=== PATIENT | female | born 1960 | race Caucasian/White ===

== ENCOUNTER → 2020-07-11 | Outpatient (CLI) | payer OTHER ==
[~2020-07-11] MED LIST: FENTANYL PF 100 MCG/2ML ONE; FLUMAZENIL 0.1 MG/1 ML, 5ML ONE; MIDAZOLAM 1 MG/ML, 5ML ONE; NALOXONE 1 MG/ML, 2ML ONE
== END | disposition home or self-care (01) ==
LOC: RAD 13:45
PROVIDERS: ATTEND Nurse Practitioner
DX: S22.078A Other fracture of T9-T10 vertebra, initial encounter for closed fracture (principal); M51.36 Other intervertebral disc degeneration, lumbar region; M43.16 Spondylolisthesis, lumbar region; I10 Essential (primary) hypertension; E11.9 Type 2 diabetes mellitus without complications; Z79.82 Long term (current) use of aspirin; Z79.4 Long term (current) use of insulin; Z79.899 Other long term (current) drug therapy; Z88.1 Allergy status to other antibiotic agents; Z88.5 Allergy status to narcotic agent; Z88.8 Allergy status to other drugs, medicaments and biological substances; Z89.511 Acquired absence of right leg below knee; Z89.422 Acquired absence of other left toe(s); Z82.49 Family history of ischemic heart disease and other diseases of the circulatory system; W01.0XXA Fall on same level from slipping, tripping and stumbling without subsequent striking against object, initial encounter; Y93.89 Activity, other specified; Y92.89 Other specified places as the place of occurrence of the external cause; Y99.8 Other external cause status
CPT/HCPCS: 72146; 72148; 99156; 99157; J2250; J3010; J2310

== ENCOUNTER 2021-04-09 16:05 | Inpatient (IN) | payer OTHER ==
[~2021-04-09] VITALS: Ht 175.3 cm; Wt 138.0 kg
[2021-04-09] MEDS ORDERED: SUCCINYLCHOLINE 20 MG/ML, 10ML ONE (16:07)
[2021-04-09] MEDS ORDERED: ETOMIDATE 20 MG/10 ML ONE (16:07)
--- NOTE | 2021-04-09 16:19 | NUR ---
pt BIB ambulance after a witnessd cardiac arrest per report, pt went to her doctor today for "a neuro issue" and after she got home, she collapsed on her proch. pt had CPR initiated by family on scene. when EMS arrived, pt was found to be in PEA. epi was given x2 and then pulses returned pt was hypotensive on scene at 86/60 and was given about 70cc of NS through IO access upon admit, pt currently has an LMA n place and BVM in progress [facility]BS INTERVENTIONAL RADIOLOGY TECH 102 RT present, pharmacy present 1608: NS 1L infusion initiated pe Dr. Solis at bedside 1610: 20mg etomidate administered IVP 1613: 200mg succinylcholine administered IVP 1615: LMA removed and 8.0 ET tube placed, 22cm @ lip. placement verified by MD at bedside and EtCO2
--- NOTE | 2021-04-09 16:27 | NUR ---
ventilator settings: A/C: 20 tidal volume: 450 O2: 100% PEEP: 8
[2021-04-09] MEDS ORDERED: LABETALOL 5MG/ML, 20ML IVPush PRN (16:30)
[2021-04-09] MEDS ORDERED: POLYETHYLENE GLYCOL 17 GM PACKET PO PRN (16:30)
[2021-04-09] MEDS ORDERED: MIDAZOLAM HCL 50 MG in SODIUM CHLORIDE 0.9% 40 ML IV PRN (16:30)
[2021-04-09] MEDS ORDERED: morphine SULFATE 10 MG/ML, 1ML IVPush PRN (16:30)
[2021-04-09] MEDS ORDERED: BISACODYL 10 MG SUPP PR PRN (16:30)
[2021-04-09] MEDS ORDERED: SUCCINYLCHOLINE 20 MG/ML, 10ML IVPush ONE (16:30)
[2021-04-09] MEDS ORDERED: NOREPINEPHRINE 8 MG in SODIUM CHLORIDE 0.9% 242 ML IV PRN (16:30)
[2021-04-09] MEDS ORDERED: ETOMIDATE 20 MG/10 ML IVPush ONE (16:30)
[2021-04-09] MEDS ORDERED: ONDANSETRON 2MG/ML, 2ML IVPush PRN (16:30)
[2021-04-09] MEDS ORDERED: LORazepam 2 MG/ML, 1ML IVPush PRN (16:30)
[2021-04-09] MEDS ORDERED: VASOPRESSIN 20 UNIT in SODIUM CHLORIDE 0.9% 99 ML IV PRN (16:30)
--- NOTE | 2021-04-09 16:30 | NUR ---
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 prosthetic has been removed by Dr. Solis, +redness to stump and redness to inner knee. pt also missing 1st to 3rd toes on L foot and has feces on the bottom of hre foot inside her shoe
--- NOTE | 2021-04-09 16:37 | NUR ---
CXR has been to bedside Dr. Solis currently having discussion with family members per Dr. Solis, pt to have hypothermic protocol after head CT
[2021-04-09 16:40] LABS: BASOPHILS % (AUTO) 1 % (0-1); EOSINOPHILS % (AUTO) 1 % (1-7); LYMPHOCYTES % (AUTO) 19 % (22-44); MEAN CORPUSCULAR HEMOGLOBIN 26.5 pg (27.0-34.8); MEAN CORPUSCULAR HGB CONC 30.2 g/dL (32.4-35.8); MEAN PLATELET VOLUME 9.4 fL (7.4-10.4); MONOCYTES % (AUTO) 6 % (2-9); NEUTROPHILS % (AUTO) 74 % (42-75); PLATELET COUNT 235 x10^3/uL (130-400); RED BLOOD COUNT 5.76 x10^6/uL (3.82-5.3); RED CELL DISTRIBUTION WIDTH 18.6 % (9.6-15.2)
--- NOTE | 2021-04-09 16:43 | NUR ---
Dr Solis at bedside administering 20mcg epi IVP
--- NOTE | 2021-04-09 16:47 | NUR ---
Dr Solis at bedside for central line placement pt B/P continues to decline. pharmacy has been contacted for levophed. awaiting delivery
--- NOTE | 2021-04-09 16:53 | NUR ---
pt has had another 50mcg of epi IVO from Dr. Solis at [facility]. pt B/P improved
[2021-04-09 16:55] LABS: INTERNATIONAL NORMALIZED RATIO 1.18 (0.93-1.1); PROTHROMBIN TIME 12.5 Seconds (9.6-11.5)
[2021-04-09 16:56] LABS: SALICYLATE LEVEL < 1.7 mg/dL (2.8-20.0)
[2021-04-09] MEDS ORDERED: FENTANYL PF 100 MCG/2ML ONE (16:58)
[2021-04-09] MEDS ORDERED: FENTANYL PF 1,000 MCG in SODIUM CHLORIDE 0.9% 80 ML IV PRN ×2 (17:00→19:30)
[2021-04-09] MEDS ORDERED: FENTANYL PF 100 MCG/2ML IV ONE (17:00)
--- NOTE | 2021-04-09 17:00 | NUR ---
2nd Liter NS started per VO from Dr. Solis at bedside 100mcg IVP given per VO from Dr. Solis at bedside
--- NOTE | 2021-04-09 17:00 | NUR ---
Dr Solis at bedside for central line placement
--- NOTE | 2021-04-09 17:03 | NUR ---
1st liter NS infusion completed 30mcg epinephrine IVP per VO from Dr. Solis at bedside
[2021-04-09 17:08] LABS: ALANINE AMINOTRANSFERASE 41 U/L (12-78); ALBUMIN 2.9 g/dL (3.4-5.0); ANION GAP 13 mmol/L (5-15); CALCIUM 8.2 mg/dL (8.5-10.1); CHLORIDE 107 mmol/L (98-107); CREATININE 2.06 mg/dL (0.55-1.02)
[2021-04-09] MEDS ORDERED: EPINEPHRINE SYRINGE 0.1 MG/ML, 10ML ONE (17:08)
--- NOTE | 2021-04-09 17:10 | NUR ---
Central line placement complete. per Dr. Solis at bedside, OK to begin levophed infusion in central line prior to line verification by imaging
[2021-04-09 17:13] LABS: ALKALINE PHOSPHATASE 93 U/L (45-117); BILIRUBIN,TOTAL 0.7 mg/dL (0.2-1.0); TOTAL PROTEIN 6.6 g/dL (6.4-8.2); TROPONIN I < 0.015 ng/mL (0.000-0.045)
--- NOTE | 2021-04-09 17:15 | NUR ---
CXR has been to bedside
[2021-04-09 17:22] LABS: ANISOCYTOSIS 1+
[2021-04-09 17:23] LABS: <PLATELET ESTIMATE> ADEQUATE; <PLT MORPHOLOGY> NORMAL PLT MORPH; POLYCHROMASIA 1+
[2021-04-09] MEDS ORDERED: EPINEPHRINE 1 MG/ML, 1ML SQ ONE (17:30)
[2021-04-09] MEDS ORDERED: DOXYCYCLINE 100 MG in DEXTROSE 5% 250 ML IV ONE (17:30)
[2021-04-09] MEDS ORDERED: CEFTRIAXONE 2 GM in DEXTROSE 5% 50 ML IVPB ONE (17:30)
--- NOTE | 2021-04-09 17:30 | NUR ---
RT at bedside. pt on transporrt vent pt to CT scan via [facility]
--- NOTE | 2021-04-09 17:50 | NUR ---
pt returned from CT scan
[2021-04-09] MEDS: MIDAZOLAM HCL 50 MG in SODIUM CHLORIDE 0.9% 40 ML IV PRN (18:01)
--- NOTE | 2021-04-09 18:30 | NUR ---
Dr Solis at bedside to attempt art line insertion
--- NOTE | 2021-04-09 18:40 | NUR ---
2nd art. line attempt
--- NOTE | 2021-04-09 18:59 | NUR ---
art line in place. report to Farnaz MARRERO
--- NOTE | 2021-04-09 19:03 | NUR ---
report from kathleen assumed care of pt at this time
[2021-04-09] MEDS ORDERED: PROPOFOL 100 ML IV ONE (19:08)
[2021-04-09] MEDS: CEFTRIAXONE 2 GM in DEXTROSE 5% 50 ML IVPB SCH (19:25)
[2021-04-09 19:27] VITALS: BP 138/74
--- NOTE | 2021-04-09 19:27 | NUR ---
diprivan and rocephin started at this time
[2021-04-09] MEDS ORDERED: CALCIUM CHLORIDE 13.6 MEQ in SODIUM CHLORIDE 0.9% 100 ML IVPB PRN (19:30)
[2021-04-09] MEDS: ARTIFICIAL TEARS OINT 3.5 GM EACHEYE SCH (19:30)
[2021-04-09] MEDS ORDERED: MAGNESIUM SULFATE 1 GM in DEXTROSE 5% 100 ML IVPB PRN (19:30)
[2021-04-09] MEDS ORDERED: SODIUM PHOSPHATE 20 MMOL in SODIUM CHLORIDE 0.9% 250 ML IVPB PRN (19:30)
--- NOTE | 2021-04-09 19:31 | NUR ---
report called to Emmy MARRERO
--- NOTE | 2021-04-09 19:57 | NUR ---
PT TRANSPORTED TO CCU WITH THIS RN AND RT AND 2 TECHS
[2021-04-09 20:20] LABS: TROPONIN I 0.048 ng/mL (0.000-0.045)
[2021-04-09] MEDS: KSCALE TO 4.0 IV SCH (20:30)
[2021-04-09 21:20] LABS: MICROSCOPIC INDICATED
[2021-04-09 21:30] LABS: ANION GAP 6 mmol/L (5-15); CHLORIDE 109 mmol/L (98-107)
[2021-04-09 21:31] LABS: CREATININE 1.73 mg/dL (0.55-1.02); TRIGLYCERIDES 108 mg/dL (50-200)
[2021-04-09 21:31] LABS: AMPHETAMINE SCREEN, URINE Negative (Negative); BARBITURATE SCREEN, URINE Negative (Negative); BENZODIAZEPINE SCREEN, URINE Positive (Negative); CANNABINOID SCREEN, URINE Negative (Negative); COCAINE SCREEN, URINE Negative (Negative); METHADONE SCREEN, URINE Negative (Negative); OPIATE SCREEN, URINE Negative (Negative)
[2021-04-09] MEDS: LACTATED RINGERS 1,000 ML IV SCH (22:11)
[2021-04-09] MEDS ORDERED: REGULAR INSULIN 100 UNITS in SODIUM CHLORIDE 0.9% 99 ML IV PRN (22:30)
[2021-04-09] MEDS ORDERED: INSULIN INFUSION FOR ICU PROTOCOL XX PRN (22:30)
[2021-04-09] MEDS: DOXYCYCLINE 100 MG in DEXTROSE 5% 250 ML IV SCH (22:31)
[2021-04-09] MEDS: FAMOTIDINE 20 MG/2 ML IVPush SCH (22:31)
[2021-04-09] MEDS: PROPOFOL 100 ML IV PRN (22:41)
[2021-04-09] MEDS: REGULAR INSULIN 100 UNITS in SODIUM CHLORIDE 0.9% 99 ML IV PRN (22:48)
[2021-04-09] MEDS ORDERED: DEXTROSE 50%, 50ML SYRINGE IV PRN (23:00)
[2021-04-09] MEDS ORDERED: INSULIN REGULAR 100 UNITS/ML, 3ML VIAL IV ONE (23:00)
[2021-04-10] MEDS ORDERED: LACTATED RINGERS 500 ML IVBOLUS ONE (00:30)
[2021-04-10] MEDS ORDERED: VECURONIUM 10 MG IVPush ONE (00:30)
[2021-04-10] MEDS: KSCALE TO 4.0 IV SCH ×6 (00:30→20:30)
[2021-04-10] MEDS: MIDAZOLAM HCL 50 MG in SODIUM CHLORIDE 0.9% 40 ML IV PRN ×3 (00:31→15:05)
[2021-04-10] MEDS: PROPOFOL 100 ML IV PRN ×7 (00:40→21:42)
[2021-04-10 00:50] LABS: ANION GAP 7 mmol/L (5-15); CALCIUM 7.8 mg/dL (8.5-10.1); CHLORIDE 110 mmol/L (98-107); CREATININE 1.67 mg/dL (0.55-1.02)
[2021-04-10] MEDS: DOPAMINE/D5W PMX 250 ML IV PRN ×4 (01:59→21:42)
[2021-04-10] MEDS: ARTIFICIAL TEARS OINT 3.5 GM EACHEYE SCH ×3 (02:33→19:40)
[2021-04-10] MEDS: FENTANYL PF 2,500 MCG in SODIUM CHLORIDE 0.9% 200 ML IV PRN ×2 (02:33→15:57)
[2021-04-10] MEDS: LACTATED RINGERS 1,000 ML IV SCH ×3 (03:03→22:30)
[2021-04-10] MEDS ORDERED: BENA40TA55 PO (04:14)
[2021-04-10] MEDS ORDERED: ZOLP10TA PO (04:14)
[2021-04-10] MEDS ORDERED: CLOP75TA52 PO (04:14)
[2021-04-10] MEDS ORDERED: ATOR40TA78 PO (04:14)
[2021-04-10] MEDS ORDERED: AMLO5TAB4 PO (04:14)
[2021-04-10] MEDS ORDERED: EMPA1TAB15 PO-COUM (04:14)
[2021-04-10] MEDS ORDERED: METO25TA91 PO (04:14)
[2021-04-10] MEDS ORDERED: ESCI20TA10 PO (04:14)
[2021-04-10] MEDS ORDERED: PIOG30TA23 PO (04:14)
[2021-04-10] MEDS ORDERED: INSU100V35 SQ (04:14)
[2021-04-10] MEDS ORDERED: GABA300C PO (04:14)
[2021-04-10] MEDS ORDERED: ALPR0.5T7 PO (04:14)
[2021-04-10] MEDS ORDERED: ICOS1CAP PO (04:14)
[2021-04-10 04:40] LABS: BASOPHILS % (AUTO) 0 % (0-1); EOSINOPHILS % (AUTO) 0 % (1-7); LYMPHOCYTES % (AUTO) 6 % (22-44); MEAN CORPUSCULAR HEMOGLOBIN 26.6 pg (27.0-34.8); MEAN CORPUSCULAR HGB CONC 31.6 g/dL (32.4-35.8); MEAN PLATELET VOLUME 8.6 fL (7.4-10.4); MONOCYTES % (AUTO) 5 % (2-9); NEUTROPHILS % (AUTO) 89 % (42-75); PLATELET COUNT 204 x10^3/uL (130-400); RED BLOOD COUNT 5.86 x10^6/uL (3.82-5.3); RED CELL DISTRIBUTION WIDTH 17.3 % (9.6-15.2)
[2021-04-10] MEDS ORDERED: POTASSIUM CHLORIDE PMX 100 ML IV ONE (05:30)
[2021-04-10 05:31] LABS: ALANINE AMINOTRANSFERASE 38 U/L (12-78); ANION GAP 10 mmol/L (5-15); CALCIUM 8.4 mg/dL (8.5-10.1); CHLORIDE 108 mmol/L (98-107)
[2021-04-10 05:33] LABS: ALKALINE PHOSPHATASE 83 U/L (45-117); BILIRUBIN,TOTAL 0.9 mg/dL (0.2-1.0); CREATININE 1.57 mg/dL (0.55-1.02); TOTAL PROTEIN 6.6 g/dL (6.4-8.2)
[2021-04-10] MEDS ORDERED: SODIUM PHOSPHATE 20 MMOL in SODIUM CHLORIDE 0.9% 250 ML IV ONE (09:00)
[2021-04-10] MEDS: SENNA/DOCUSATE TABLET PO SCH (09:00)
[2021-04-10] MEDS ORDERED: POTASSIUM CHLORIDE PMX 100 ML IVPB ONE (10:00)
[2021-04-10] MEDS: DOXYCYCLINE 100 MG in DEXTROSE 5% 250 ML IV SCH ×2 (10:47→22:40)
[2021-04-10] MEDS ORDERED: POTASSIUM CHLORIDE 40 MEQ in SODIUM CHLORIDE 0.9% 100 ML IV ONE (13:30)
[2021-04-10] MEDS: CEFTRIAXONE 2 GM in DEXTROSE 5% 50 ML IVPB SCH (17:52)
[2021-04-10] MEDS: FAMOTIDINE 20 MG/2 ML IVPush SCH (21:32)
[2021-04-11] MEDS: KSCALE TO 4.0 IV SCH ×6 (00:30→20:30)
[2021-04-11] MEDS: ARTIFICIAL TEARS OINT 3.5 GM EACHEYE SCH ×3 (02:23→21:19)
[2021-04-11] MEDS: MIDAZOLAM HCL 50 MG in SODIUM CHLORIDE 0.9% 40 ML IV PRN ×3 (02:23→17:33)
[2021-04-11] MEDS: PROPOFOL 100 ML IV PRN ×6 (02:24→16:57)
[2021-04-11] MEDS: DOPAMINE/D5W PMX 250 ML IV PRN ×3 (02:57→12:26)
[2021-04-11 05:09] LABS: BASOPHILS % (AUTO) 1 % (0-1); EOSINOPHILS % (AUTO) 4 % (1-7); LYMPHOCYTES % (AUTO) 11 % (22-44); MEAN CORPUSCULAR HEMOGLOBIN 26.7 pg (27.0-34.8); MEAN CORPUSCULAR HGB CONC 31.4 g/dL (32.4-35.8); MEAN PLATELET VOLUME 9.4 fL (7.4-10.4); MONOCYTES % (AUTO) 6 % (2-9); NEUTROPHILS % (AUTO) 79 % (42-75); PLATELET COUNT 186 x10^3/uL (130-400); RED BLOOD COUNT 5.93 x10^6/uL (3.82-5.3); RED CELL DISTRIBUTION WIDTH 18.1 % (9.6-15.2)
[2021-04-11 05:15] LABS: CALCIUM 8.7 mg/dL (8.5-10.1); CHLORIDE 111 mmol/L (98-107)
[2021-04-11 05:17] LABS: ANION GAP 9 mmol/L (5-15); CREATININE 1.27 mg/dL (0.55-1.02)
[2021-04-11] MEDS: FENTANYL PF 2,500 MCG in SODIUM CHLORIDE 0.9% 200 ML IV PRN ×2 (05:48→21:14)
[2021-04-11] MEDS: LACTATED RINGERS 1,000 ML IV SCH ×2 (08:30→18:30)
[2021-04-11] MEDS: REGULAR INSULIN 100 UNITS in SODIUM CHLORIDE 0.9% 99 ML IV PRN (08:41)
[2021-04-11] MEDS: SENNA/DOCUSATE TABLET PO SCH (08:44)
[2021-04-11] MEDS: DOXYCYCLINE 100 MG in DEXTROSE 5% 250 ML IV SCH ×2 (10:33→22:42)
[2021-04-11 13:03] LABS: FIO2 70 %
[2021-04-11] MEDS: CEFTRIAXONE 2 GM in DEXTROSE 5% 50 ML IVPB SCH (16:59)
[2021-04-11] MEDS ORDERED: VECURONIUM 10 MG ONE (21:06)
[2021-04-11] MEDS: NOREPINEPHRINE 8 MG in SODIUM CHLORIDE 0.9% 242 ML IV PRN (21:15)
[2021-04-11] MEDS: FAMOTIDINE 20 MG/2 ML IVPush SCH (21:19)
[2021-04-11] MEDS ORDERED: VECURONIUM 10 MG IVPush ONE (22:00)
[2021-04-11] MEDS ORDERED: SODIUM BICARB 8.4%, 50ML SYRINGE ONE (22:17)
[2021-04-11] MEDS ORDERED: SODIUM BICARB 8.4%, 50ML SYRINGE IVPush ONE (22:30)
[2021-04-11] MEDS: VECURONIUM 50 MG in SODIUM CHLORIDE 0.9% 50 ML IV PRN (22:42)
[2021-04-12] MEDS: KSCALE TO 4.0 IV SCH ×6 (00:30→20:30)
[2021-04-12] MEDS: ARTIFICIAL TEARS OINT 3.5 GM EACHEYE SCH ×3 (02:34→20:22)
[2021-04-12] MEDS: DOPAMINE/D5W PMX 250 ML IV PRN (03:00)
[2021-04-12] MEDS: VECURONIUM 50 MG in SODIUM CHLORIDE 0.9% 50 ML IV PRN (03:20)
[2021-04-12] MEDS: PROPOFOL 100 ML IV PRN ×5 (04:00→23:27)
[2021-04-12] MEDS: LACTATED RINGERS 1,000 ML IV SCH (04:30)
[2021-04-12 04:56] LABS: BASOPHILS % (AUTO) 1 % (0-1); EOSINOPHILS % (AUTO) 2 % (1-7); LYMPHOCYTES % (AUTO) 5 % (22-44); MEAN CORPUSCULAR HEMOGLOBIN 26.1 pg (27.0-34.8); MEAN CORPUSCULAR HGB CONC 31.1 g/dL (32.4-35.8); MEAN PLATELET VOLUME 8.8 fL (7.4-10.4); MONOCYTES % (AUTO) 6 % (2-9); NEUTROPHILS % (AUTO) 87 % (42-75); PLATELET COUNT 181 x10^3/uL (130-400); RED CELL DISTRIBUTION WIDTH 18.1 % (9.6-15.2)
[2021-04-12 05:05] LABS: ANION GAP 8 mmol/L (5-15); CHLORIDE 112 mmol/L (98-107)
[2021-04-12] MEDS: DOXYCYCLINE 100 MG in DEXTROSE 5% 250 ML IV SCH ×2 (11:05→23:27)
[2021-04-12] MEDS: SENNA/DOCUSATE TABLET PO SCH (11:25)
[2021-04-12] MEDS: CEFTRIAXONE 2 GM in DEXTROSE 5% 50 ML IVPB SCH (17:23)
[2021-04-12] MEDS: NOREPINEPHRINE 8 MG in SODIUM CHLORIDE 0.9% 242 ML IV PRN (18:04)
[2021-04-12] MEDS: FAMOTIDINE 20 MG/2 ML IVPush SCH (20:22)
[2021-04-13] MEDS: KSCALE TO 4.0 IV SCH ×2 (00:30→04:30)
[2021-04-13] MEDS: PROPOFOL 100 ML IV PRN ×9 (01:26→22:39)
[2021-04-13] MEDS: ARTIFICIAL TEARS OINT 3.5 GM EACHEYE SCH ×3 (03:39→19:30)
[2021-04-13 05:00] LABS: BASOPHILS % (AUTO) 1 % (0-1); EOSINOPHILS % (AUTO) 4 % (1-7); LYMPHOCYTES % (AUTO) 15 % (22-44); MEAN CORPUSCULAR HEMOGLOBIN 26.1 pg (27.0-34.8); MEAN CORPUSCULAR HGB CONC 31.4 g/dL (32.4-35.8); MEAN PLATELET VOLUME 9.1 fL (7.4-10.4); MONOCYTES % (AUTO) 8 % (2-9); NEUTROPHILS % (AUTO) 72 % (42-75); PLATELET COUNT 159 x10^3/uL (130-400); RED CELL DISTRIBUTION WIDTH 17.9 % (9.6-15.2)
[2021-04-13 05:12] LABS: ANION GAP 5 mmol/L (5-15); CALCIUM 8.1 mg/dL (8.5-10.1); CHLORIDE 112 mmol/L (98-107)
[2021-04-13 05:13] LABS: CREATININE 1.04 mg/dL (0.55-1.02)
[2021-04-13] MEDS: FAMOTIDINE 20 MG/2 ML IVPush SCH ×2 (08:35→21:47)
[2021-04-13] MEDS: SENNA/DOCUSATE TABLET PO SCH (08:35)
[2021-04-13] MEDS: ENOXAPARIN 60 MG/0.6 ML SQ SCH (09:43)
[2021-04-13] MEDS: DOXYCYCLINE 100 MG in DEXTROSE 5% 250 ML IV SCH ×2 (11:42→22:39)
--- NOTE | 2021-04-13 15:46 | NUR ---
UPDATED TF RECS: Vital HP: goal 40mL/hr ON propofol, 70 mL/hr OFF propofol Add 2 packets beneprotein BID Addendum: 04/13/21 at [address] Amended: Links added.
[2021-04-13] MEDS: CEFTRIAXONE 2 GM in DEXTROSE 5% 50 ML IVPB SCH (17:12)
[2021-04-14] MEDS: PROPOFOL 100 ML IV PRN ×6 (00:56→23:33)
[2021-04-14 04:07] LABS: BASOPHILS % (AUTO) 1 % (0-1); EOSINOPHILS % (AUTO) 4 % (1-7); LYMPHOCYTES % (AUTO) 13 % (22-44); MEAN CORPUSCULAR HGB CONC 31.2 g/dL (32.4-35.8); MEAN PLATELET VOLUME 8.8 fL (7.4-10.4); MONOCYTES % (AUTO) 12 % (2-9); NEUTROPHILS % (AUTO) 71 % (42-75); PLATELET COUNT 152 x10^3/uL (130-400); RED BLOOD COUNT 4.74 x10^6/uL (3.82-5.3); RED CELL DISTRIBUTION WIDTH 17.6 % (9.6-15.2)
[2021-04-14 04:15] LABS: ANION GAP 7 mmol/L (5-15); CALCIUM 8.1 mg/dL (8.5-10.1); CHLORIDE 109 mmol/L (98-107); CREATININE 1.26 mg/dL (0.55-1.02)
[2021-04-14] MEDS: SENNA/DOCUSATE TABLET PO SCH (08:50)
[2021-04-14] MEDS: FAMOTIDINE 20 MG/2 ML IVPush SCH ×2 (08:50→21:16)
[2021-04-14] MEDS: ENOXAPARIN 60 MG/0.6 ML SQ SCH (08:51)
[2021-04-14] MEDS: DOXYCYCLINE 100 MG in DEXTROSE 5% 250 ML IV SCH ×2 (10:52→22:54)
[2021-04-14] MEDS: CEFTRIAXONE 2 GM in DEXTROSE 5% 50 ML IVPB SCH (17:51)
[2021-04-15] MEDS: PROPOFOL 100 ML IV PRN ×2 (02:19→05:16)
[2021-04-15 04:23] LABS: BASOPHILS % (AUTO) 1 % (0-1); EOSINOPHILS % (AUTO) 5 % (1-7); LYMPHOCYTES % (AUTO) 18 % (22-44); MEAN CORPUSCULAR HEMOGLOBIN 26.1 pg (27.0-34.8); MEAN CORPUSCULAR HGB CONC 31.5 g/dL (32.4-35.8); MEAN PLATELET VOLUME 8.6 fL (7.4-10.4); MONOCYTES % (AUTO) 13 % (2-9); NEUTROPHILS % (AUTO) 63 % (42-75); PLATELET COUNT 147 x10^3/uL (130-400); RED BLOOD COUNT 4.69 x10^6/uL (3.82-5.3); RED CELL DISTRIBUTION WIDTH 17.6 % (9.6-15.2)
[2021-04-15 04:35] LABS: ANION GAP 6 mmol/L (5-15); CALCIUM 8.1 mg/dL (8.5-10.1); CHLORIDE 111 mmol/L (98-107); CREATININE 1.03 mg/dL (0.55-1.02); TRIGLYCERIDES 129 mg/dL (50-200)
[2021-04-15] MEDS: FAMOTIDINE 20 MG/2 ML IVPush SCH ×2 (09:10→21:23)
[2021-04-15] MEDS: SENNA/DOCUSATE TABLET PO SCH (09:11)
[2021-04-15] MEDS: SCOPOLAMINE 1MG PATCH TD SCH (09:11)
[2021-04-15] MEDS: ENOXAPARIN 60 MG/0.6 ML SQ SCH (09:13)
[2021-04-15] MEDS ORDERED: ICN LORazepam 0.2 MG/ML IV IVPush STA (10:10)
[2021-04-15] MEDS ORDERED: LORazepam 2 MG/ML, 1ML IVPush ONE (10:15)
[2021-04-15] MEDS ORDERED: FUROSEMIDE 40 MG/4 ML IV ONE (11:00)
[2021-04-15] MEDS ORDERED: PHENYTOIN SODIUM 1,000 MG in SODIUM CHLORIDE 0.9% 100 ML IV ONE (11:00)
[2021-04-15] MEDS: DOXYCYCLINE 100 MG in DEXTROSE 5% 250 ML IV SCH ×2 (11:08→22:23)
[2021-04-15] MEDS: CEFTRIAXONE 2 GM in DEXTROSE 5% 50 ML IVPB SCH (17:55)
[2021-04-16 04:07] LABS: BASOPHILS % (AUTO) 1 % (0-1); EOSINOPHILS % (AUTO) 2 % (1-7); LYMPHOCYTES % (AUTO) 8 % (22-44); MEAN CORPUSCULAR HEMOGLOBIN 26.6 pg (27.0-34.8); MEAN PLATELET VOLUME 8.9 fL (7.4-10.4); MONOCYTES % (AUTO) 14 % (2-9); NEUTROPHILS % (AUTO) 76 % (42-75); PLATELET COUNT 161 x10^3/uL (130-400); RED BLOOD COUNT 4.98 x10^6/uL (3.82-5.3)
[2021-04-16 04:18] LABS: ANION GAP 6 mmol/L (5-15); CALCIUM 8.5 mg/dL (8.5-10.1); CHLORIDE 110 mmol/L (98-107)
[2021-04-16] MEDS: SENNA/DOCUSATE TABLET PO SCH (09:00)
[2021-04-16] MEDS: ENOXAPARIN 60 MG/0.6 ML SQ SCH (09:29)
[2021-04-16] MEDS: FAMOTIDINE 20 MG/2 ML IVPush SCH ×2 (09:29→21:07)
[2021-04-16] MEDS: DOXYCYCLINE 100 MG in DEXTROSE 5% 250 ML IV SCH (10:43)
[2021-04-16 10:46] LABS: CLOSTRIDIUM DIFFICILE ANTIGEN NEGATIVE; CLOSTRIDIUM DIFFICILE TOXIN NEGATIVE (Negative)
[2021-04-16] MEDS: PHENYTOIN SODIUM 50 MG/ML, 2ML IVPush SCH ×2 (11:25→18:31)
[2021-04-16] MEDS: CEFTRIAXONE 2 GM in DEXTROSE 5% 50 ML IVPB SCH (18:31)
[2021-04-17] MEDS: PHENYTOIN SODIUM 50 MG/ML, 2ML IVPush SCH ×3 (01:45→17:29)
[2021-04-17 04:28] LABS: BASOPHILS % (AUTO) 1 % (0-1); EOSINOPHILS % (AUTO) 2 % (1-7); LYMPHOCYTES % (AUTO) 9 % (22-44); MEAN CORPUSCULAR HEMOGLOBIN 26.4 pg (27.0-34.8); MEAN CORPUSCULAR HGB CONC 31.7 g/dL (32.4-35.8); MEAN PLATELET VOLUME 9.2 fL (7.4-10.4); MONOCYTES % (AUTO) 13 % (2-9); NEUTROPHILS % (AUTO) 76 % (42-75); PLATELET COUNT 145 x10^3/uL (130-400); RED CELL DISTRIBUTION WIDTH 17.8 % (9.6-15.2)
[2021-04-17 04:37] LABS: ANION GAP 6 mmol/L (5-15); CALCIUM 8.8 mg/dL (8.5-10.1); CHLORIDE 113 mmol/L (98-107)
[2021-04-17 04:38] LABS: CREATININE 0.87 mg/dL (0.55-1.02)
[2021-04-17] MEDS: SENNA/DOCUSATE TABLET PO SCH (08:24)
[2021-04-17] MEDS: ENOXAPARIN 60 MG/0.6 ML SQ SCH (08:24)
[2021-04-17] MEDS: FAMOTIDINE 20 MG/2 ML IVPush SCH ×2 (08:24→21:18)
[2021-04-17] MEDS: CEFTRIAXONE 2 GM in DEXTROSE 5% 50 ML IVPB SCH (17:29)
[2021-04-17] MEDS: ENOXAPARIN 40 MG/0.4 ML SQ SCH (21:18)
[2021-04-18] MEDS: PHENYTOIN SODIUM 50 MG/ML, 2ML IVPush SCH ×3 (01:40→18:04)
[2021-04-18] MEDS: LORazepam 2 MG/ML, 1ML IVPush PRN ×5 (01:40→23:21)
[2021-04-18 04:44] LABS: BASOPHILS % (AUTO) 1 % (0-1); EOSINOPHILS % (AUTO) 2 % (1-7); LYMPHOCYTES % (AUTO) 12 % (22-44); MEAN CORPUSCULAR HEMOGLOBIN 26.1 pg (27.0-34.8); MEAN CORPUSCULAR HGB CONC 31.5 g/dL (32.4-35.8); MEAN PLATELET VOLUME 9.5 fL (7.4-10.4); MONOCYTES % (AUTO) 11 % (2-9); NEUTROPHILS % (AUTO) 74 % (42-75); PLATELET COUNT 164 x10^3/uL (130-400); RED BLOOD COUNT 4.88 x10^6/uL (3.82-5.3); RED CELL DISTRIBUTION WIDTH 18.1 % (9.6-15.2)
[2021-04-18 04:52] LABS: CALCIUM 8.6 mg/dL (8.5-10.1); CREATININE 0.83 mg/dL (0.55-1.02)
[2021-04-18 05:01] LABS: ANION GAP 5 mmol/L (5-15); CHLORIDE 113 mmol/L (98-107)
[2021-04-18] MEDS: ENALAPRILAT 1.25 MG/ML, 2ML IVPush PRN (05:29)
[2021-04-18] MEDS: FAMOTIDINE 20 MG/2 ML IVPush SCH ×2 (08:31→21:25)
[2021-04-18] MEDS: SCOPOLAMINE 1MG PATCH TD SCH (08:32)
[2021-04-18] MEDS: ENOXAPARIN 40 MG/0.4 ML SQ SCH ×2 (08:32→21:25)
[2021-04-18] MEDS: SENNA/DOCUSATE TABLET PO SCH (08:33)
[2021-04-18] MEDS: ACETAMINOPHEN 325 MG TABLET PO PRN (16:45)
[2021-04-18] MEDS: OXYcodone IR 5MG TABLET PO PRN (16:45)
[2021-04-18] MEDS: CEFTRIAXONE 2 GM in DEXTROSE 5% 50 ML IVPB SCH (17:16)
[2021-04-19] MEDS ORDERED: MORPHINE SULFATE 4 MG/ML, 1ML ONE (02:14)
[2021-04-19] MEDS: PHENYTOIN SODIUM 50 MG/ML, 2ML IVPush SCH ×2 (02:23→09:39)
[2021-04-19] MEDS: LORazepam 2 MG/ML, 1ML IVPush PRN ×2 (02:23→06:34)
[2021-04-19] MEDS: ENALAPRILAT 1.25 MG/ML, 2ML IVPush PRN ×2 (03:02→09:39)
[2021-04-19 04:30] LABS: BASOPHILS % (AUTO) 1 % (0-1); EOSINOPHILS % (AUTO) 4 % (1-7); LYMPHOCYTES % (AUTO) 15 % (22-44); MEAN CORPUSCULAR HEMOGLOBIN 26.2 pg (27.0-34.8); MEAN CORPUSCULAR HGB CONC 31.9 g/dL (32.4-35.8); MEAN PLATELET VOLUME 9.8 fL (7.4-10.4); MONOCYTES % (AUTO) 10 % (2-9); NEUTROPHILS % (AUTO) 71 % (42-75); PLATELET COUNT 167 x10^3/uL (130-400); RED BLOOD COUNT 4.88 x10^6/uL (3.82-5.3); RED CELL DISTRIBUTION WIDTH 18.3 % (9.6-15.2)
[2021-04-19 04:47] LABS: ANION GAP 4 mmol/L (5-15); CALCIUM 8.6 mg/dL (8.5-10.1); CHLORIDE 113 mmol/L (98-107)
[2021-04-19] MEDS: ENOXAPARIN 40 MG/0.4 ML SQ SCH (08:31)
[2021-04-19] MEDS: FAMOTIDINE 20 MG/2 ML IVPush SCH (08:31)
[2021-04-19] MEDS: SENNA/DOCUSATE TABLET PO SCH (08:38)
[2021-04-19] MEDS: ACETAMINOPHEN 325 MG TABLET PO PRN (10:32)
[2021-04-19] MEDS: OXYcodone IR 5MG TABLET PO PRN (10:33)
[2021-04-19] MEDS ORDERED: MORPHINE SULFATE 4 MG/ML, 1ML IVPush PRN (15:00)
[2021-04-19] MEDS ORDERED: ONDANSETRON 2MG/ML, 2ML IVPush PRN (15:00)
[2021-04-19] MEDS ORDERED: ATROPINE OPHTH SOLN 1%, 5ML PO PRN (15:00)
[2021-04-19] MEDS ORDERED: SCOPOLAMINE 1MG PATCH TD PRN (15:00)
[2021-04-19] MEDS ORDERED: LORazepam 2 MG/ML, 1ML IV ONE (15:00)
[2021-04-19] MEDS ORDERED: LORazepam 2 MG/ML, 1ML IVPush PRN (15:00)
[2021-04-19] MEDS ORDERED: MORPHINE SULFATE 4 MG/ML, 1ML IV ONE (15:00)
[2021-04-19] MEDS: FENTANYL PF 2,500 MCG in SODIUM CHLORIDE 0.9% 200 ML IV PRN (15:03)
== END 2021-04-19 17:38 | DRG 870 ==
LOC: ED 16:25 → EDIP 16:30 → CCU 19:48
PROVIDERS: ADMIT Internal Medicine; ATTEND Internal Medicine
PROC: 0BH17EZ Insertion of Endotracheal Airway into Trachea, Via Natural or Artificial Opening (ICD-10-PCS; principal; 2021-04-09)
PROC: 5A1955Z Respiratory Ventilation, Greater than 96 Consecutive Hours (ICD-10-PCS; 2021-04-09)
PROC: 5A12012 Performance of Cardiac Output, Single, Manual (ICD-10-PCS; 2021-04-09)
PROC: 02HV33Z Insertion of Infusion Device into Superior Vena Cava, Percutaneous Approach (ICD-10-PCS; 2021-04-09)
DX: A41.9 Sepsis, unspecified organism (principal); G93.41 Metabolic encephalopathy; I50.33 Acute on chronic diastolic (congestive) heart failure; J15.0 Pneumonia due to Klebsiella pneumoniae; J15.4 Pneumonia due to other streptococci; J96.01 Acute respiratory failure with hypoxia; N17.0 Acute kidney failure with tubular necrosis; R65.21 Severe sepsis with septic shock; D68.9 Coagulation defect, unspecified; Z99.11 Dependence on respirator [ventilator] status; E87.4 Mixed disorder of acid-base balance; G93.1 Anoxic brain damage, not elsewhere classified; I47.1 Supraventricular tachycardia; E11.51 Type 2 diabetes mellitus with diabetic peripheral angiopathy without gangrene; E66.01 Morbid (severe) obesity due to excess calories; Z66 Do not resuscitate; E83.51 Hypocalcemia; E88.09 Other disorders of plasma-protein metabolism, not elsewhere classified; G40.909 Epilepsy, unspecified, not intractable, without status epilepticus; G83.9 Paralytic syndrome, unspecified; G93.89 Other specified disorders of brain; I11.0 Hypertensive heart disease with heart failure; I27.20 Pulmonary hypertension, unspecified; I46.9 Cardiac arrest, cause unspecified; N30.90 Cystitis, unspecified without hematuria; R57.0 Cardiogenic shock; Z20.822 Contact with and (suspected) exposure to COVID-19; Z51.5 Encounter for palliative care; Z86.73 Personal history of transient ischemic attack (TIA), and cerebral infarction without residual deficits; Z89.511 Acquired absence of right leg below knee; Z78.9 Other specified health status; Z79.899 Other long term (current) drug therapy
CPT/HCPCS: 31500; 36415; 36556; 36600; 70450; 70551; 71045; 71250; 72125; 74018; 80048; 80053; 80299; 80307; 80320; 80329; 81001; 82330; 82550; 82803; 82947; 82962; 83036; 83605; 83735; 84100; 84132; 84478; 84484; 85025; 85610; 85730; 87040; 87070; 87077; 87081; 87086; 87147; 87186; 87205; 87324; 92950; 93005; 93321; 93325; 94002; 94003; 95712; 96374; 96375; G0378; J0696; J1165; J1265; J1650; J1940; J2250; J2704; J3010; J3480; J7060; J7120; U0005; C8924; G0480; J0330; J2060; J2270; J7040; J7050; U0003